=== PATIENT | female | born 1970 | race Caucasian/White ===

== ENCOUNTER 2018-04-15 22:32 | Emergency (ER) | payer BC ==
[~2018-04-15] VITALS: Ht 170.2 cm; Wt 96.0 kg
[2018-04-15] MEDS ORDERED: PERCOCET 5/321 COMBO PO (23:39)
[2018-04-15 23:50] VITALS: BP 139/90
== END 2018-04-16 | disposition home or self-care (01) | DRG 153 ==
LOC: ED 22:32
DX: H66.92 Otitis media, unspecified, left ear (principal); H92.02 Otalgia, left ear

== ENCOUNTER 2022-07-17 12:10 | Emergency (ER) | payer OTHER, BC ==
[2022-07-17] VITALS (10 sets, daily range): BP systolic 137–168; BP diastolic 88–110
[~2022-07-17] VITALS: Ht 170.2 cm; Wt 101.2 kg
[~2022-07-17 12:10] MED LIST: PERCOCET 5/321 COMBO PO
[2022-07-17 13:20] LABS: URINE BILIRUBIN - DIPSTICK NEGATIVE (NEGATIVE); URINE BLOOD DIPSTICK NEGATIVE (NEGATIVE); URINE COLOR YELLOW; URINE GLUCOSE - DIPSTICK NEGATIVE (NEGATIVE); URINE KETONE NEGATIVE (NEGATIVE); URINE LEUK ESTERASE NEGATIVE (NEGATIVE); URINE PROTEIN - DIPSTICK NEGATIVE (NEG-TRACE); URINE SPECIFIC GRAVITY <=1.005; URINE UROBILINOGEN - DIPSTICK 0.2 E.U./dL (0.2)
[2022-07-17 13:21] LABS: URINE NITRITE - DIPSTICK NEGATIVE (Negative)
[2022-07-17] MEDS ORDERED: METHOCARBAMOL500 MG PO (15:10)
[2022-07-17] MEDS ORDERED: NAPROXEN500 MG PO (15:10)
== END 2022-07-17 15:22 | disposition home or self-care (01) | DRG 552 ==
LOC: ED 12:10
PROVIDERS: Nurse Practitioner
DX: S33.5XXA Sprain of ligaments of lumbar spine, initial encounter (principal); V43.52XA Car driver injured in collision with other type car in traffic accident, initial encounter; S09.90XA Unspecified injury of head, initial encounter